=== PATIENT | female | born 1995 | race African-American/Black ===

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

== ENCOUNTER 2017-05-07 13:22 | Emergency (ER) | payer MEDICAID ==
[~2017-05-07] VITALS: Ht 157.5 cm; Wt 55.0 kg
[2017-05-07 13:26] VITALS: BP 100/53; PULSE 75; RESP 14; TEMP 98.6; O2SAT 99
[2017-05-07] MEDS ORDERED: IBUPROFEN 600 MG TAB PO ONE (14:15)
[2017-05-07] MEDS ORDERED: IBUP-232 PO (14:23)
--- NOTE | 2017-05-07 14:24 | PD ---
HPI Chief Complaint: Injury Time Seen by Provider: 13:34 Travel History International Travel<30 days: No Contact w/Intl Traveler<30days: No Traveled to known affect area: No History of Present Illness HPI The patient is a 21-year-old after [place] female who presents emergency department for right sided chest wall pain. The patient states yesterday she was going down the stairs when she missed the last 2 stairs, landing on the ground, twisting to the right. The patient denies actually falling to the ground. However, she continues to have some pain located over the right rib cage area that is worse with deep inspiration, coughing, and movement. She denies any shortness of breath, nausea, vomiting, or abdominal pain. She denies any actual blunt trauma to the right rib cage and did not fall to the ground. Symptoms are mild to moderate, worse with certain types of movement, slightly alleviated at rest. PFSH Past Medical History Developmental Delay: No Immunizations Current: Yes ?: Not LMP: 04/26/17 : 1 Para: 1 Past Surgical History Surgical History: No Previous Surgery Social History Alcohol Use: No Tobacco Use: Yes Substance Use: No Allergies-Medications (Allergen,Severity, Reaction): Coded Allergies: No Known Allergies (Unverified Adverse Reaction, Unknown, 05/07/17) Reported Meds & Prescriptions Reported Meds & Active Scripts Active No Active Prescriptions or Reported Medications Review of Systems Except as stated in HPI: all other systems reviewed are Neg General / Constitutional: No: Fever Cardiovascular: Positive: Chest Pain or Discomfort (right chest wall.) Respiratory: No: Shortness of Breath Gastrointestinal: No: Nausea, Vomiting, Abdominal Pain Physical Exam Narrative GENERAL: Awake, alert, pleasant 21-year-old female who appears her stated age and is in no acute respiratory distress. The patient was examined in the presence of a female nurse, Monserrat. SKIN: Focused skin assessment warm/dry. HEAD: Atraumatic. Normocephalic. EYES: No injection or drainage. ENT: No nasal bleeding or discharge. Mucous membranes pink and moist. NECK: Trachea midline. No JVD. CARDIOVASCULAR: Regular rate and rhythm. No murmur appreciated. Right chest wall is tender, pain is elicited with palpation of the lateral inferior right rib cage. RESPIRATORY: No accessory muscle use. Clear to auscultation. Breath sounds equal bilaterally. GASTROINTESTINAL: Abdomen soft, non-tender, nondistended. No rebound tenderness. No guarding or rigidity. MUSCULOSKELETAL: No obvious deformities. No clubbing. No cyanosis. No edema. NEUROLOGICAL: Awake and alert. No obvious cranial nerve deficits. Motor grossly within normal limits. Normal speech. PSYCHIATRIC: Appropriate mood and affect; insight and judgment normal. Data Data Last Documented VS Vital Signs Date Time Temp Pulse Resp B/P (MAP) Pulse Ox O2 Delivery O2 Flow Rate FiO2 05/07/17 13:26 98.6 75 14 100/53 (69) 99 Orders Orders Ibuprofen (Motrin) (05/07/17 14:15) [facility] Medical Decision Making Medical Screen Exam Complete: Yes Emergency Medical Condition: Yes Medical Record Reviewed: Yes Differential Diagnosis Differential diagnosis includes fracture, contusion, strain, sprain, musculoskeletal pain. Narrative Course The patient will was administered Motrin 600 mg orally for pain. The patient had no direct trauma to the affected area, no indication for x-ray. The patient will be placed on anti-inflammatories and is advised to follow-up with her primary physician. Diagnosis Primary Impression: Chest wall muscle strain Qualified Codes: S29.011A - Strain of muscle and tendon of front wall of thorax, initial encounter Patient Instructions: General Instructions Additional Instructions: Work excuse for today. Nonsteroidal anti-inflammatories as directed. Follow- up with your primary physician. Return if symptoms worsen or progress. Med/Other Pt SpecificInfo: Prescription(s) given Scripts Ibuprofen (Ibuprofen) 600 Mg Tab 600 MG PO Q6H Y for Pain/Inflammation, #20 TAB 0 Refills Prov: Jhoan Whaley MD 05/07/17 Disposition: 01 DISCHARGE HOME Condition: Stable Jhoan Whaley MD May 07, 2017 14:24
== END 2017-05-07 14:56 | disposition home or self-care (01) ==
LOC: NEPD 13:22
DX: S29.011A Strain of muscle and tendon of front wall of thorax, initial encounter (principal); X50.1XXA Overexertion from prolonged static or awkward postures, initial encounter; Y93.89 Activity, other specified
CPT/HCPCS: 99283

== ENCOUNTER 2017-10-18 17:53 | Emergency (ER) | payer MEDICAID ==
[~2017-10-18] VITALS: Ht 157.5 cm; Wt 50.0 kg
[~2017-10-18 17:53] MED LIST changes: -CIPR500T4 PO; +IBUP-232 PO; -METR-1 PO
[2017-10-18 18:49] VITALS: BP 126/57; PULSE 82; RESP 16; TEMP 97.8; O2SAT 100
--- NOTE | 2017-10-18 19:26 | PD ---
HPI Chief Complaint: Complaint Time Seen by Provider: 19:15 Travel History International Travel<30 days: No Contact w/Intl Traveler<30days: No Traveled to known affect area: No History of Present Illness HPI 22yo F with no PMH presents to the ED with multiple complaints. Pt states she has bloody vaginal discharge for 2 days. Also with some dysuria that resolved. +Nausea. Pt also with mild cough, nasal congestion and generalized weakness. Said she did not go to work today. Denies any fever, chest pain, sob, vomiting, diarrhea, abdominal pain, focal weakness or numbness. PFSH Past Medical History Developmental Delay: No Immunizations Current: Yes ?: Not LMP: 10/07/17 : 1 Para: 1 Social History Alcohol Use: No Tobacco Use: Yes Substance Use: No Allergies-Medications (Allergen,Severity, Reaction): Coded Allergies: No Known Allergies (Unverified Adverse Reaction, Unknown, 10/18/17) Reported Meds & Prescriptions Reported Meds & Active Scripts Active Ibuprofen 600 Mg Tab 600 Mg PO Q6H PRN Review of Systems Except as stated in HPI: all other systems reviewed are Neg Physical Exam Narrative GENERAL: 22yo F not in distress. SKIN: Focused skin assessment warm/dry. HEAD: Atraumatic. Normocephalic. EYES: Pupils equal and round. No scleral icterus. No injection or drainage. ENT: No nasal bleeding or discharge. Mucous membranes pink and moist. NECK: Trachea midline. No JVD. CARDIOVASCULAR: Regular rate and rhythm. No murmur appreciated. RESPIRATORY: No accessory muscle use. Clear to auscultation. Breath sounds equal bilaterally. GASTROINTESTINAL: Abdomen soft, non-tender, nondistended. No rebound tenderness or guarding. PELVIC: Brownish vaginal discharge. No CMT or adnexal tenderness bilaterally. MUSCULOSKELETAL: No obvious deformities. No clubbing. No cyanosis. No edema. NEUROLOGICAL: Awake and alert. No obvious cranial nerve deficits. Motor grossly within normal limits in all extremities. Sensation intact. Normal speech. PSYCHIATRIC: Appropriate mood and affect; insight and judgment normal. Data Data Last Documented VS Vital Signs Date Time Temp Pulse Resp B/P (MAP) Pulse Ox O2 Delivery O2 Flow Rate FiO2 10/18/17 18:49 97.8 82 16 126/57 (80) 100 Orders Orders Ed Urine Pregnancytest Poc (10/18/17 19:00) Urinalysis - C+S If Indicated (10/18/17 19:00) Gc And Chlamydia Pcr (10/18/17 19:20) Wet Prep Profile (10/18/17 19:20) Ondansetron Odt (Zofran Odt) (10/18/17 19:30) Blood Glucose (10/18/17 19:20) Labs Laboratory Tests Test 10/18/17 19:15 10/18/17 20:15 Urine Color COLORLESS Urine Turbidity CLEAR Urine pH 5.5 Urine Specific [place] 1.002 Urine Protein NEG mg/dL Urine Glucose (UA) NEG mg/dL Urine Ketones NEG mg/dL Urine Occult Blood NEG Urine Nitrite NEG Urine Bilirubin NEG Urine Urobilinogen LESS THAN 2.0 MG/DL Urine Leukocyte Esterase NEG Urine WBC LESS THAN 1 /hpf Urine Squamous Epithelial Cells 1 /hpf Microscopic Urinalysis Comment CULT NOT INDICATED Clue Cells (Wet Prep) NONE SEEN Vaginal Trichomonas (Wet Prep) NONE SEEN Vaginal Yeast (Wet Prep) NONE SEEN MDM Medical Decision Making Medical Screen Exam Complete: Yes Emergency Medical Condition: Yes Differential Diagnosis vs. UTI vs. bacterial vaginosis vs. GC/chlamydia vs. hypoglycemia vs. URI vs. flu Narrative Course 22yo F with c/o bloody vaginal discharge. Pt is very well appearing. Has some brownish vaginal discharge on pelvic exam. No CMT or adnexal tenderness. Urine negative. Blood glucose 92. UA negative. Wet prep negative. Pt has no abdominal tenderness. Feel that pt wants a work note. Vital signs normal. Return precautions given. Diagnosis Primary Impression: Vaginal discharge Patient Instructions: General Instructions Departure Forms: Tests/Procedures Additional Instructions: Please follow up with your primary care physician and your online producer as outpatient. Return to the ED if symptoms worsen. Med/Other Pt SpecificInfo: No Change to Meds Disposition: 01 DISCHARGE HOME Condition: Stable Brittany Astorga DO October 18, 2017 19:26
[2017-10-18] MEDS ORDERED: ONDANSETRON ODT 4 MG TAB PO ONE (19:30)
[2017-10-18 19:58] LABS: BILIRUBIN, URINE NEG (NEG); BLOOD, URINE NEG (NEG); GLUCOSE,URINE NEG (NEG); KETONE, URINE NEG (NEG); NITRITE,URINE NEG (NEG); PH, URINE 5.5 (5.0-8.5); SQUAMOUS EPITHELIAL CELL URINE 1 /hpf (0-5); URINE COLOR COLORLESS (YELLW/STRAW); URINE LEUKOCYTE ESTERASE NEG (NEG)
== END 2017-10-18 22:36 | disposition home or self-care (01) ==
LOC: NEPD 17:53
DX: N89.8 Other specified noninflammatory disorders of vagina (principal); Z72.0 Tobacco use
CPT/HCPCS: 81001; 84703; 87210; 87491; 87591; 99284

== ENCOUNTER 2017-10-30 10:09 | Emergency (ER) | payer MEDICAID ==
[~2017-10-30] VITALS: Ht 157.5 cm; Wt 60.0 kg
[2017-10-30 10:10] VITALS: BP 109/60; PULSE 79; RESP 18; TEMP 97.7; O2SAT 100
[2017-10-30] MEDS ORDERED: DOXY100C PO (10:24)
--- NOTE | 2017-10-30 10:24 | PD ---
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 Pain is more pressure-like. This is been ongoing for the last 2 weeks. Patient was seen October 18 for the same symptoms. At that time she tested positive for gonorrhea and chlamydia, but had been discharged prior to treatment. She had not returned for treatment. She denies any fever chills. No nausea or vomiting. She has no other symptoms to report. PFSH Past Medical History Anemia: Yes Developmental Delay: No Immunizations Current: Yes ?: Not LMP: 10/07/17 : 1 Para: 1 Social History Alcohol Use: No Tobacco Use: No Substance Use: No Allergies-Medications (Allergen,Severity, Reaction): Coded Allergies: No Known Allergies (Unverified Adverse Reaction, Unknown, 10/18/17) Reported Meds & Prescriptions Reported Meds & Active Scripts Active Doxycycline Hyclate 100 Mg Cap 100 Mg PO BID Ibuprofen 600 Mg Tab 600 Mg PO Q6H PRN Review of Systems Except as stated in HPI: all other systems reviewed are Neg Physical Exam Narrative GENERAL: Well-nourished, well-developed female patient in no acute distress SKIN: No rashes, ecchymoses or lesions. Cool and dry. HEAD: Normocephalic. EYES: No scleral icterus. No injection or drainage. NECK: Supple, trachea midline. No JVD or lymphadenopathy. CARDIOVASCULAR: Regular rate and rhythm without murmurs, gallops, or rubs. RESPIRATORY: Breath sounds equal bilaterally. No accessory muscle use. GASTROINTESTINAL: Abdomen soft, nondistended. Slight suprapubic tenderness to palpation, no rebound tenderness. No guarding. MUSCULOSKELETAL: No cyanosis, or edema. BACK: Nontender without obvious deformity. No CVA tenderness. Data Data Last Documented VS Vital Signs Date Time Temp Pulse Resp B/P (MAP) Pulse Ox O2 Delivery O2 Flow Rate FiO2 10/30/17 10:10 97.7 79 18 109/60 (76) 100 Orders Orders Ceftriaxone Inj (Rocephin Inj) (10/30/17 10:30) Azithromycin (Zithromax) (10/30/17 10:30) Ed Discharge Order (10/30/17 10:22) [facility] Medical Decision Making Medical Screen Exam Complete: Yes Emergency Medical Condition: Yes Medical Record Reviewed: Yes Differential Diagnosis STD versus UTI versus PID Narrative Course 22-year-old female presents emergency department for evaluation of pelvic pain. Patient tested positive for gonorrhea and chlamydia on October 18 of this year, however she had not been treated. Patient will be treated for PID at this time. She is counseled on safe sex practices. She is encouraged to follow-up with gynecology. She agrees to return immediately with acute worsening symptoms. 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 Follow-up with your sensitizer or the [facility] department for more STD testing. Med/Other Pt SpecificInfo: Prescription(s) given Scripts Doxycycline Hyclate (Doxycycline Hyclate) 100 Mg Cap 100 MG PO BID for Infection, #20 CAP 0 Refills Prov: Arlin Oates 10/30/17 Disposition: 01 DISCHARGE HOME Condition: Stable Arlin Oates Oct 30, 2017 10:24
[2017-10-30] MEDS ORDERED: AZITHROMYCIN 250 MG TAB PO ONE (10:30)
[2017-10-30] MEDS ORDERED: cefTRIAXone 250 MG VIAL IM ONE (10:30)
== END 2017-10-30 10:46 | disposition home or self-care (01) ==
LOC: NEPD 10:09
DX: A54.9 Gonococcal infection, unspecified (principal); A74.9 Chlamydial infection, unspecified; N89.8 Other specified noninflammatory disorders of vagina; R10.2 Pelvic and perineal pain
CPT/HCPCS: 96372; 99283; J0696